=== PATIENT | female | born 1960 | race African-American/Black ===

== ENCOUNTER 2023-04-07 | Outpatient (REF) | payer OTHER, SELFPAY ==
[2023-04-09 13:20] LABS: BV Int Neg Control Negative (Negative); BV Int Pos Control Positive (Positive)
== END 2023-04-07 00:01 | disposition home or self-care (01) ==
LOC: HO.LNP
PROVIDERS: Visit Provider Internal Medicine
DX: N76.0 Acute vaginitis (principal); B96.89 Other specified bacterial agents as the cause of diseases classified elsewhere
CPT/HCPCS: 87480; 87510; 87660

== ENCOUNTER 2023-04-07 13:18 | Outpatient (AMB) | payer OTHER, SELFPAY ==
--- NOTE | 2023-04-07 13:55 | AM.OFFWIN_ITS ---
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 Patient reports vaginal discharge, itching symptoms. She is sexually active with a single partner. No fevers or chills. Patient is a diabetic. [facility] Patient Tobacco Use Status: Current everyday Tobacco user Physical Exam Vital Signs: Last Vital Signs Temp 97.0 F 04/07/23 13:57 Pulse 93 04/07/23 13:57 BP 130/70 04/07/23 13:57 Pulse Ox 96 04/07/23 13:57 Oxygen Delivery Method Room Air 04/07/23 13:57 BMI result Body Mass Index 29.9 Const General: cooperative, healthy appearing, comfortable and no acute distress Results AMB Urinalysis, Automated UA Leukoctes 125 Marie/uL Last Edit by Aníbal Liu CMA on 04/07/23 14:0 9 UA Nitrite Negative Last Edit by Aníbal Liu CMA on 04/07/23 14:09 UA Urobilinogen 0.2 mg/dL Last Edit by Aníbal Liu CMA on 04/07/23 14 :09 UA Protein 30 mg/dL Last Edit by Aníbal Liu CMA on 04/07/23 14:09 UA pH 6.0 Last Edit by Aníbal Liu CMA on 04/07/23 14:09 UA Blood 25 Teofilo/uL Last Edit by Aníbal Liu CMA on 04/07/23 14:09 UA Specific [place] 1.025 Last Edit by Aníbal Liu CMA on 04/07/23 14:09 UA Ketone Negative Last Edit by Aníbal Liu CMA on 04/07/23 14:09 UA Bilirubin 2 mg/dL Last Edit by Aníbal Liu CMA on 04/07/23 14:09 UA Glucose 0 mg/dL Last Edit by Aníbal Liu CMA on 04/07/23 14:09 Results Reviewed Results Reviewed: Laboratory Last Values Urine pH (Auto) 6.0 04/07/23 14:08 Specific [place] (Auto) 1.025 04/07/23 14:08 Urine Protein (Auto) 30 mg/dL 04/07/23 14:08 Glucose (UA)(Auto) 0 mg/dL 04/07/23 14:08 Urine Ketones (Auto) Negative 04/07/23 14:08 Urine Blood (Auto) 25 Teofilo/uL 04/07/23 14:08 Urine Nitrite (Auto) Negative 04/07/23 14:08 Urine Bilirubin (Auto) 2 mg/dL 04/07/23 14:08 Urine Urobilinogen (Auto) 0.2 mg/dL 04/07/23 14:08 Leukocyte Esterase (Auto) 125 Marie/uL 04/07/23 14:08 Assessment & Plan Assessment & Plan (1) Vaginal candidiasis: Code(s): B37.31 - Acute candidiasis of vulva and vagina Plan: Empiric treatment with Diflucan. Swab for bacterial vaginosis sent. Will call with results. Orders: Orders SureSwab BV CT/NG TMA Today B96.89 - Other specified bacterial agents as the cause of diseases classified elsewhere, N76.0 - Acute vaginitis AMB Urinalysis Automated Today Z13.9 - Encounter for screening, unspecified Medications: New fluconazole 150 mg PO Q3D 2 tabs 0RF 2 doses Coding Level of Care Code Est Pt Level 3 (28592) Diagnoses Vaginal candidiasis B37.31
[2023-04-07 13:57] VITALS: BP 130/70; PULSE 93; TEMP 36.1; O2SAT 96; BMI 29.9
== END 2023-04-07 14:38 | disposition home or self-care (01) ==
PROVIDERS: Visit Provider Internal Medicine
DX: B37.31 Acute candidiasis of vulva and vagina (principal)
CPT/HCPCS: 81003; 99213